=== PATIENT | male | born 1990 | race Caucasian/White ===

== ENCOUNTER 2017-05-06 01:26 | Emergency (ER) | payer SELFPAY ==
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
== END 2017-05-06 02:40 | disposition disaster alternative care site (69) ==
LOC: GACC 01:26
DX: S02.82XA Fracture of other specified skull and facial bones, left side, initial encounter for closed fracture (principal); F17.210 Nicotine dependence, cigarettes, uncomplicated; W07.XXXA Fall from chair, initial encounter

== ENCOUNTER → 2017-05-06 | Outpatient (CLI) | payer SELFPAY | END | disposition disaster alternative care site (69) | LOC: GAMB 01:13 | DX: S09.93XA Unspecified injury of face, initial encounter (principal); S01.81XA Laceration without foreign body of other part of head, initial encounter; R58 Hemorrhage, not elsewhere classified; R22.0 Localized swelling, mass and lump, head; X58.XXXD Exposure to other specified factors, subsequent encounter | CPT/HCPCS: A0425; A0429 ==